=== PATIENT | female | born 1965 | race African-American/Black ===

== ENCOUNTER 2017-01-24 02:37 | Inpatient (IN) | payer BC ==
[~2017-01-24] VITALS: Ht 157.5 cm; Wt 45.8 kg
[2017-01-24] MEDS ORDERED: LORAZEPAM 2MG/ML CPJ IV STA (03:02)
[2017-01-24] MEDS ORDERED: SODIUM CHLORIDE 0.9% 1,000 ML IV ONE ×2 (03:02→05:15)
[2017-01-24 03:22] LABS: INR 1.1; PROTHROMBIN TIME 11.1 sec
[2017-01-24 03:28] LABS: ALANINE AMINOTRANSFERASE 76 IU/L (13-61); ALBUMIN 4.5 g/dL (3.4-5.0); ANION GAP 39; CALCIUM 8.7 mg/dL (8.5-10.1); CHLORIDE 94 mEq/L (98-107); ETHANOL BLOOD < 10 mg/dL; INDEX HEMOLYSI 3 (1-3); INDEX ICTERIC 1 (1-4); INDEX LIPEMIC 1 (1-3); UREA NITROGEN BLOOD 9 mg/dL (7-21); eGFR > 60 mL/min (>60)
[2017-01-24 03:29] LABS: DIFFERENTIAL COMMENT 1; HEMATOCRIT. 41.4 % (36.0-48.0); HEMOGLOBIN. 13.2 g/dL (12.0-16.0); MEAN CORPUSCULAR HGB CONC 31.9 g/dL (31.0-37.0); MEAN CORPUSCULAR VOLUME 109.6 fL (81.0-99.0); MEAN PLATELET VOLUME 10.4 fl (7.4-10.4); PLATELET 133 x1000/uL (130-400); RED BLOOD CELL COUNT 3.78 mill/uL (4.2-5.4); RED CELL DISTRIBUTION WIDTH 15.2 % (11.6-14.6); WHITE BLOOD COUNT 14.3 x1000/uL (4.5-11.0)
[2017-01-24 03:32] LABS: CLARITY URINE CLEAR (CLEAR); COLOR URINE YELLOW (YELLOW); GLUCOSE URINE NEGATIVE (NEGATIVE); KETONES URINE 4+ (NEGATIVE); LEUKOCYTE ESTERASE URINE NEGATIVE (NEGATIVE); NITRITE URINE NEGATIVE (NEGATIVE); OCCULT BLOOD URINE 1+ (NEGATIVE); PROTEIN URINE 2+ (NEGATIVE); SPECIFIC GRAVITY URINE 1.015 (1.005-1.030); UROBILINOGEN URINE 0.2 E.U./dL (0.2-1.0)
[2017-01-24 03:35] LABS: CARBON DIOXIDE 7 mEq/L (21-32)
[2017-01-24 03:41] LABS: *AMPHETAMINES SCREEN URINE NEGATIVE (NEGATIVE); *BARBITURATES SCREEN URINE NEGATIVE (NEGATIVE); *BENZODIAZEPINES SCREEN URINE NEGATIVE (NEGATIVE); *COCAINE SCREEN URINE NEGATIVE (NEGATIVE); CANNABINOID URINE SCREEN PRESUMTIVE POSITIVE (NEGATIVE); ECSTASY MDMA SCREEN URINE NEGATIVE (NEGATIVE); METHADONE URINE SCREEN NEGATIVE (NEGATIVE); OPIATES URINE SCREEN NEGATIVE (NEGATIVE); PHENCYCLIDINE URINE SCREEN NEGATIVE (NEGATIVE)
[2017-01-24 03:46] LABS: PLATELET ESTIMATE NORMAL
[2017-01-24 03:49] LABS: BACTERIA URINE NONE SEEN; RBC URINE NONE SEEN /hpf (0-2); SQUAMOUS EPITHELIAL CELL URINE FEW /lpf (RARE/1+); WBC URINE NONE SEEN /hpf (0-2)
[2017-01-24 03:57] LABS: BG BASE EXCESS -20.5 mmol/L (-2.0-2.0); BG CARBOXYHEMOGLOBIN 0.9 % (0.5-1.5); BG DEOXYHEMOGLOBIN 4.2 % (0.0-5.0); BG FRACTION INSPIRED OXYGEN 21; BG HCO3 ACT 5.2 mmol/L (22.0-26.0); BG METHEMOGLOBIN 0.4 % (0.0-1.5); BG OXYGEN SATURATION 95.7 % (92.0-98.5); BG OXYHEMOGLOBIN 94.5 % (94.0-97.0); BG PCO2 13.8 mmHg (35.0-45.0); BG PH 7.191 (7.350-7.450); BG SAMPLE SITE RIGHT RADIAL; BG TOTAL HEMOGLOBIN 13.9 g/dL (12.0-18.0); BG VENT MODE ROOM AIR
[2017-01-24] MEDS ORDERED: FOLIC ACID 1 MG, THIAMINE HCL 100 MG, MVI, ADULT NO.1 10 ML in DEXTROSE 5% WATER 1,000 ML IV ONE ×4 (04:30)
[2017-01-24 04:58] LABS: ACETAMINOPHEN < 2 ug/mL (10-30)
[2017-01-24 04:59] LABS: BETA HYDROXYBUTYRATE 6.7 mMol/L (0.0-0.3)
[2017-01-24 06:35] VITALS: BP 170/118
[2017-01-24 06:48] LABS: LACTIC ACID 7.1 mmol/L (0.4-2.0)
[2017-01-24 07:47] VITALS: BP 161/110
[2017-01-24 08:00] VITALS: BP 161/110
[2017-01-24] MEDS ORDERED: ONDANSETRON HCL 4MG/2ML VIAL IV PRN (09:15)
[2017-01-24] MEDS ORDERED: DOCUSATE SODIUM 100MG CAPSULE PO PRN (09:15)
[2017-01-24] MEDS ORDERED: ACETAMINOPHEN 325MG TABLET PO PRN (09:15)
[2017-01-24] MEDS ORDERED: CLONIDINE 0.1MG TABLET PO PRN (09:15)
[2017-01-24] MEDS ORDERED: GUAIFENESIN 200MG/10ML SUGAR FREE UDC PO PRN (09:15)
[2017-01-24] MEDS ORDERED: KETOROLAC 30MG/ML VIAL IV PRN (09:15)
[2017-01-24] MEDS ORDERED: NITROGLYCERIN 0.4MG TABLET SL SL PRN (09:15)
[2017-01-24] MEDS ORDERED: NA PHOS,M-B/NA PHOS,DI-BA ENEMA 118ML PR PRN (09:15)
[2017-01-24] MEDS ORDERED: IPRATROPIUM/ALBUTEROL 0.5-3(2.5)MG/3ML NEB INH PRN (09:30)
[2017-01-24 10:38] LABS: HEMATOCRIT. 34.1 % (36.0-48.0); HEMOGLOBIN. 11.2 g/dL (12.0-16.0); MEAN CORPUSCULAR HEMOGLOBIN 34.5 pg (28.0-32.0); MEAN CORPUSCULAR HGB CONC 32.8 g/dL (31.0-37.0); MEAN PLATELET VOLUME 9.9 fl (7.4-10.4); PLATELET 96 x1000/uL (130-400); RED BLOOD CELL COUNT 3.25 mill/uL (4.2-5.4); RED CELL DISTRIBUTION WIDTH 14.3 % (11.6-14.6)
[2017-01-24 10:40] LABS: DIFFERENTIAL COMMENT 1
[2017-01-24 11:07] LABS: ALBUMIN 3.3 g/dL (3.4-5.0); ANION GAP 23; CALCIUM 8.1 mg/dL (8.5-10.1); CARBON DIOXIDE 16 mEq/L (21-32); CHLORIDE 98 mEq/L (98-107); INDEX HEMOLYSI 1 (1-3); INDEX ICTERIC 1 (1-4); INDEX LIPEMIC 1 (1-3); MAGNESIUM 1.5 mg/dL (1.8-2.4); UREA NITROGEN BLOOD 5 mg/dL (7-21)
[2017-01-24 11:10] LABS: ALANINE AMINOTRANSFERASE 52 IU/L (13-61); eGFR > 60 mL/min (>60)
[2017-01-24 12:00] VITALS: BP 145/71
[2017-01-24] MEDS: PANTOPRAZOLE SODIUM 40 MG/VIAL IV SCH (12:15)
[2017-01-24] MEDS: ENOXAPARIN 40MG/0.4ML SYR SUBCUT SCH (12:15)
[2017-01-24] MEDS ORDERED: IOHEXOL-350 100 ML BOTTLE ONE (13:35)
[2017-01-24] MEDS ORDERED: SODIUM CHLORIDE 0.9% 10ML VIAL ONE (13:35)
[2017-01-24 13:48] LABS: PLATELET ESTIMATE DECREASED
[2017-01-24] MEDS: LEVOFLOXACIN 750MG PREMIX 150 ML IV SCH (15:29)
[2017-01-24 16:00] VITALS: BP 126/90
[2017-01-24 16:29] LABS: CREATINE KINASE MB FRACTION 1.5 ng/mL (0.5-3.6); TROPONIN I 0.04 ng/mL (0.00-0.04)
[2017-01-24] MEDS ORDERED: MAGNESIUM 2 G PREMIX 50 ML IV NR (18:00)
[2017-01-24 20:00] VITALS: BP 123/91
[2017-01-24] MEDS: SODIUM CHLORIDE 0.9% 1,000 ML IV SCH (20:32)
[2017-01-24] MEDS ORDERED: ZOLPIDEM TARTRATE 5MG TABLET PO PRN (21:00)
[2017-01-24] MEDS: KETOROLAC 15MG/ML VIAL IV PRN (21:52)
[2017-01-25] VITALS: BP 143/97
[2017-01-25] MEDS ORDERED: POTA20TA82 PO (02:07)
[2017-01-25] MEDS ORDERED: IBUP-1509 PO (02:07)
[2017-01-25 04:00] VITALS: BP 123/89
[2017-01-25] MEDS: KETOROLAC 15MG/ML VIAL IV PRN ×3 (04:34→18:17)
[2017-01-25] MEDS: SODIUM CHLORIDE 0.9% 1,000 ML IV SCH ×3 (06:25→20:32)
[2017-01-25 08:09] VITALS: BP 122/89
[2017-01-25 08:43] LABS: CREATINE KINASE MB FRACTION 1.7 ng/mL (0.5-3.6); TROPONIN I 0.13 ng/mL (0.00-0.04)
[2017-01-25] MEDS: ENOXAPARIN 40MG/0.4ML SYR SUBCUT SCH (09:00)
[2017-01-25] MEDS: FOLIC ACID 1MG TABLET PO SCH (09:08)
[2017-01-25] MEDS: THIAMINE HCL 100MG TABLET PO SCH (09:09)
[2017-01-25] MEDS: LORAZEPAM 2MG/ML CPJ IV PRN ×3 (09:09→20:31)
[2017-01-25] MEDS: PANTOPRAZOLE SODIUM 40 MG/VIAL IV SCH (09:09)
[2017-01-25] MEDS: MULTIVITAMINS,THER W-MINERALS TABLET PO SCH (09:09)
[2017-01-25 10:29] LABS: BASOPHILS % 0.3 % (0.0-2.0); DIFFERENTIAL COMMENT 0; HEMATOCRIT. 36.1 % (36.0-48.0); HEMOGLOBIN. 12.1 g/dL (12.0-16.0); LYMPHOCYTES % 11.8 % (20.0-50.0); MEAN CORPUSCULAR HEMOGLOBIN 34.8 pg (28.0-32.0); MEAN CORPUSCULAR HGB CONC 33.5 g/dL (31.0-37.0); MEAN CORPUSCULAR VOLUME 103.8 fL (81.0-99.0); MEAN PLATELET VOLUME 10.9 fl (7.4-10.4); MONOCYTES % 6.2 % (2.0-8.0); NEUTROPHILS % 81.7 % (40.0-76.0); PLATELET 85 x1000/uL (130-400); RED BLOOD CELL COUNT 3.47 mill/uL (4.2-5.4); RED CELL DISTRIBUTION WIDTH 14.7 % (11.6-14.6); WHITE BLOOD COUNT 9.2 x1000/uL (4.5-11.0)
[2017-01-25 10:40] LABS: ALANINE AMINOTRANSFERASE 46 IU/L (13-61); ALBUMIN 3.2 g/dL (3.4-5.0); ANION GAP 25; CALCIUM 8.6 mg/dL (8.5-10.1); CARBON DIOXIDE 12 mEq/L (21-32); CHLORIDE 102 mEq/L (98-107); INDEX HEMOLYSI 2 (1-3); INDEX ICTERIC 1 (1-4); INDEX LIPEMIC 1 (1-3); UREA NITROGEN BLOOD 6 mg/dL (7-21); eGFR > 60 mL/min (>60)
[2017-01-25] MEDS: LEVOFLOXACIN 750MG PREMIX 150 ML IV SCH (11:18)
[2017-01-25 12:00] VITALS: BP 143/97
[2017-01-25 16:00] VITALS: BP 116/83
[2017-01-25] MEDS ORDERED: POTASSIUM CHLORIDE 20MEQ TABLET SR PO NR (19:30)
[2017-01-25 20:00] VITALS: BP 126/91
[2017-01-26] VITALS: BP 113/84
[2017-01-26] MEDS: LORAZEPAM 2MG/ML CPJ IV PRN ×4 (00:40→20:53)
[2017-01-26 04:00] VITALS: BP 147/90
[2017-01-26 08:16] VITALS: BP 134/93
[2017-01-26] MEDS: THIAMINE HCL 100MG TABLET PO SCH (08:54)
[2017-01-26] MEDS: FAMOTIDINE 20MG TABLET PO SCH ×2 (09:55→20:53)
[2017-01-26] MEDS: MULTIVITAMINS,THER W-MINERALS TABLET PO SCH (09:55)
[2017-01-26] MEDS: FOLIC ACID 1MG TABLET PO SCH (09:55)
[2017-01-26] MEDS: LEVOFLOXACIN 750MG PREMIX 150 ML IV SCH (10:54)
[2017-01-26] MEDS: KETOROLAC 15MG/ML VIAL IV PRN ×2 (11:02→18:06)
[2017-01-26 11:32] LABS: BASOPHILS % 0.7 % (0.0-2.0); DIFFERENTIAL COMMENT 0; EOSINOPHILS % 0.1 % (0.0-5.0); MEAN CORPUSCULAR HEMOGLOBIN 34.4 pg (28.0-32.0); MEAN CORPUSCULAR HGB CONC 34.2 g/dL (31.0-37.0); MEAN CORPUSCULAR VOLUME 100.4 fL (81.0-99.0); MEAN PLATELET VOLUME 9.1 fl (7.4-10.4); MONOCYTES % 6.6 % (2.0-8.0); NEUTROPHILS % 77.6 % (40.0-76.0); PLATELET 78 x1000/uL (130-400); RED BLOOD CELL COUNT 3.49 mill/uL (4.2-5.4); RED CELL DISTRIBUTION WIDTH 14.2 % (11.6-14.6); WHITE BLOOD COUNT 7.7 x1000/uL (4.5-11.0)
[2017-01-26 12:02] LABS: ALANINE AMINOTRANSFERASE 71 IU/L (13-61); ALBUMIN 3.1 g/dL (3.4-5.0); ANION GAP 13; CALCIUM 8.5 mg/dL (8.5-10.1); CARBON DIOXIDE 24 mEq/L (21-32); CHLORIDE 104 mEq/L (98-107); INDEX HEMOLYSI 1 (1-3); INDEX ICTERIC 1 (1-4); INDEX LIPEMIC 1 (1-3); MAGNESIUM 1.7 mg/dL (1.8-2.4); UREA NITROGEN BLOOD 5 mg/dL (7-21); eGFR > 60 mL/min (>60)
[2017-01-26 12:10] VITALS: BP 111/85
[2017-01-26] MEDS ORDERED: POTASSIUM CHLORIDE 20MEQ TABLET SR PO NR (13:15)
[2017-01-26] MEDS ORDERED: MAGNESIUM 1 G PREMIX 100 ML IV NR (14:00)
[2017-01-26] MEDS ORDERED: POTASSIUM CHLORIDE INJ 40 MEQ in DEXT 5% WATER 250 ML IV NR (15:00)
[2017-01-26 16:11] VITALS: BP 114/86
[2017-01-26] MEDS: SODIUM CHLORIDE 0.9% 1,000 ML IV SCH ×2 (18:00→20:53)
[2017-01-26 20:00] VITALS: BP 134/101
[2017-01-27] VITALS: BP 127/90
[2017-01-27] MEDS: LORAZEPAM 2MG/ML CPJ IV PRN (00:36)
[2017-01-27 04:00] VITALS: BP 122/87
[2017-01-27] MEDS: SODIUM CHLORIDE 0.9% 1,000 ML IV SCH (04:00)
[2017-01-27 08:00] VITALS: BP 146/106
[2017-01-27] MEDS: THIAMINE HCL 100MG TABLET PO SCH (08:13)
[2017-01-27] MEDS: FOLIC ACID 1MG TABLET PO SCH (08:13)
[2017-01-27] MEDS: FAMOTIDINE 20MG TABLET PO SCH (08:13)
[2017-01-27] MEDS: MULTIVITAMINS,THER W-MINERALS TABLET PO SCH (08:13)
[2017-01-27 10:15] VITALS: BP 128/87
[2017-01-27 10:25] VITALS: BP 128/87
[2017-01-27] MEDS ORDERED: LEVOFLOXACIN 250MG TABLET PO SCH (11:00)
== END 2017-01-27 10:50 | disposition home or self-care (01) | DRG 871 ==
LOC: ER 02:45 → 7WST 05:09
PROVIDERS: ADMIT Internal Medicine; ATTEND Internal Medicine
DX: A41.9 Sepsis, unspecified organism (principal); J18.9 Pneumonia, unspecified organism; E87.2 Acidosis; F12.10 Cannabis abuse, uncomplicated; F17.210 Nicotine dependence, cigarettes, uncomplicated; R73.9 Hyperglycemia, unspecified; K76.0 Fatty (change of) liver, not elsewhere classified; R74.0 Nonspecific elevation of levels of transaminase and lactic acid dehydrogenase [LDH]; Z90.710 Acquired absence of both cervix and uterus
CPT/HCPCS: 36415; 36600; 71010; 71275; 80053; 80302; 80305; 80329; 81001; 82010; 82375; 82550; 82553; 82805; 83036; 83605; 83735; 83930; 84443; 84484; 85025; 85379; 85610; 93005; 93970; 96361; 96365; 96375; 97162; 99285; A4216; C9113; G0482; J1650; J1885; J1956; J2060; J3411; J3475; J3480; J3490; J7030; J7060; J7070; Q9967

== ENCOUNTER 2018-07-13 03:36 | Emergency (ER) | payer SELFPAY ==
[~2018-07-13] VITALS: Ht 157.5 cm; Wt 35.0 kg
[~2018-07-13 03:36] MED LIST: IBUP-2028 PO; POTA20TA82 PO
[2018-07-13] MEDS ORDERED: ONDANSETRON HCL 4MG/2ML VIAL IV STA (04:13)
[2018-07-13] MEDS ORDERED: MORPHINE SULFATE 4 MG/ML CPJ (NOT FOR IM USE) IV STA (04:13)
[2018-07-13] MEDS ORDERED: ASPIRIN 81MG TABLET PO ONE (04:15)
[2018-07-13 04:28] LABS: BASOPHILS % 0.2 % (0.0-2.0); EOSINOPHILS % 0.2 % (0.0-5.0); HEMATOCRIT. 40.4 % (36.0-48.0); HEMOGLOBIN. 13.6 g/dL (12.0-16.0); LYMPHOCYTES % 25.2 % (20.0-50.0); MEAN CORPUSCULAR HEMOGLOBIN 31.6 pg (28.0-32.0); MEAN PLATELET VOLUME 8.9 fl (7.4-10.4); MONOCYTES % 6.3 % (2.0-8.0); NEUTROPHILS % 68.1 % (40.0-76.0); PLATELET 153 x1000/uL (130-400); RED CELL DISTRIBUTION WIDTH 15.8 % (11.6-14.6)
[2018-07-13 04:33] LABS: CHLORIDE 107 mEq/L (98-107)
[2018-07-13 04:35] LABS: PARTIAL THROMBOPLASTIN TIME 33.1 sec (23.4-31.0)
[2018-07-13 04:59] LABS: ETHANOL BLOOD 377 mg/dL
[2018-07-13] MEDS ORDERED: KETOROLAC 30MG/ML VIAL IV ONE (05:15)
[2018-07-13] MEDS ORDERED: MAGNESIUM/ALUMINUM HYDROXIDE/SIMETHICONE 30ML UDC PO ONE (05:15)
[2018-07-13] MEDS ORDERED: FAMOTIDINE 20MG/2ML VIAL IV ONE (05:15)
[2018-07-13] MEDS ORDERED: METHYLPREDNISOLONE SOD SUCC 125 MG/2 ML VIAL IV STA (05:19)
[2018-07-13] MEDS ORDERED: IPRATROPIUM/ALBUTEROL 0.5-3(2.5)MG/3ML NEB HHN ONE (05:30)
[2018-07-13] MEDS ORDERED: LEVOFLOXACIN 500MG PREMIX 100 ML IV ONE (05:30)
[2018-07-13 06:25] LABS: CLARITY URINE CLEAR (CLEAR); COLOR URINE YELLOW (YELLOW); KETONES URINE TRACE (NEGATIVE); LEUKOCYTE ESTERASE URINE TRACE (NEGATIVE); NITRITE URINE NEGATIVE (NEGATIVE); OCCULT BLOOD URINE NEGATIVE (NEGATIVE); PROTEIN URINE TRACE (NEGATIVE); SPECIFIC GRAVITY URINE 1.011 (1.005-1.030); UROBILINOGEN URINE 0.2 E.U./dL (0.2-1.0)
[2018-07-13 06:42] LABS: *AMPHETAMINES SCREEN URINE NEGATIVE (NEGATIVE); *BARBITURATES SCREEN URINE NEGATIVE (NEGATIVE); *BENZODIAZEPINES SCREEN URINE NEGATIVE (NEGATIVE); *COCAINE SCREEN URINE NEGATIVE (NEGATIVE); METHADONE URINE SCREEN NEGATIVE (NEGATIVE); OPIATES URINE SCREEN PRESUMTIVE POSITIVE (NEGATIVE)
[2018-07-13 06:43] LABS: CANNABINOID URINE SCREEN PRESUMTIVE POSITIVE (NEGATIVE); PHENCYCLIDINE URINE SCREEN NEGATIVE (NEGATIVE)
[2018-07-13 06:51] VITALS: BP 107/57
== END 2018-07-13 06:53 | disposition home or self-care (01) ==
LOC: ER 04:18 → CANBEDREQ 10:52
DX: T51.0X1A Toxic effect of ethanol, accidental (unintentional), initial encounter (principal); R07.89 Other chest pain; J44.9 Chronic obstructive pulmonary disease, unspecified; I25.2 Old myocardial infarction; F17.200 Nicotine dependence, unspecified, uncomplicated; Z90.710 Acquired absence of both cervix and uterus; Z79.899 Other long term (current) drug therapy; Y92.89 Other specified places as the place of occurrence of the external cause
CPT/HCPCS: 36415; 71045; 80053; 80305; 81003; 83690; 83880; 84484; 85025; 85610; 85730; 87040; 93005; 96365; 96375; 99285; 99406; G0482; J1885; J1956; J2270; J2405; J2930; J3490; J7620; Z7610

== ENCOUNTER 2018-07-24 15:28 | Emergency (ER) | payer SELFPAY ==
[~2018-07-24] VITALS: Ht 157.5 cm; Wt 50.0 kg
[2018-07-24 16:59] LABS: BASOPHILS % 0.8 % (0.0-2.0); EOSINOPHILS % 0.3 % (0.0-5.0); HEMATOCRIT. 38.4 % (36.0-48.0); HEMOGLOBIN. 12.9 g/dL (12.0-16.0); LYMPHOCYTES % 42.4 % (20.0-50.0); MEAN CORPUSCULAR HEMOGLOBIN 31.7 pg (28.0-32.0); MEAN CORPUSCULAR VOLUME 94.6 fL (81.0-99.0); MEAN PLATELET VOLUME 8.5 fl (7.4-10.4); MONOCYTES % 8.5 % (2.0-8.0); PLATELET 149 x1000/uL (130-400); RED BLOOD CELL COUNT 4.06 mill/uL (4.2-5.4); RED CELL DISTRIBUTION WIDTH 16.4 % (11.6-14.6)
[2018-07-24 17:09] LABS: CHLORIDE 106 mEq/L (98-107)
[2018-07-24 17:25] LABS: ETHANOL BLOOD 472 mg/dL
[2018-07-24 17:37] LABS: CLARITY URINE CLEAR (CLEAR); COLOR URINE YELLOW (YELLOW); KETONES URINE NEGATIVE (NEGATIVE); LEUKOCYTE ESTERASE URINE TRACE (NEGATIVE); NITRITE URINE NEGATIVE (NEGATIVE); OCCULT BLOOD URINE NEGATIVE (NEGATIVE); PH URINE 5.5 (4.5-8.0); PROTEIN URINE TRACE (NEGATIVE); SPECIFIC GRAVITY URINE 1.012 (1.005-1.030); UROBILINOGEN URINE 0.2 E.U./dL (0.2-1.0)
[2018-07-24] MEDS ORDERED: KCL 20MEQ/100ML PREMIX 100 ML IV ONE (17:45)
[2018-07-24 17:59] LABS: *AMPHETAMINES SCREEN URINE NEGATIVE (NEGATIVE); *BARBITURATES SCREEN URINE NEGATIVE (NEGATIVE); *BENZODIAZEPINES SCREEN URINE NEGATIVE (NEGATIVE); *COCAINE SCREEN URINE NEGATIVE (NEGATIVE)
[2018-07-24 18:01] LABS: CANNABINOID URINE SCREEN PRESUMTIVE POSITIVE (NEGATIVE); METHADONE URINE SCREEN NEGATIVE (NEGATIVE); OPIATES URINE SCREEN NEGATIVE (NEGATIVE); PHENCYCLIDINE URINE SCREEN NEGATIVE (NEGATIVE)
[2018-07-24] MEDS ORDERED: IBUPROFEN 400MG TABLET PO ONE (19:30)
[2018-07-24 20:10] VITALS: BP 123/65
== END 2018-07-24 20:40 | disposition home or self-care (01) ==
LOC: ER 16:13
DX: F10.129 Alcohol abuse with intoxication, unspecified (principal); Y90.8 Blood alcohol level of 240 mg/100 ml or more; R07.89 Other chest pain; F41.9 Anxiety disorder, unspecified; Z56.0 Unemployment, unspecified; R74.8 Abnormal levels of other serum enzymes; Z63.5 Disruption of family by separation and divorce; F17.210 Nicotine dependence, cigarettes, uncomplicated
CPT/HCPCS: 36415; 71045; 80053; 80305; 81003; 84484; 85025; 93005; 99285; G0482; J3480; J7030; Z7610

== ENCOUNTER 2018-09-26 01:04 | Emergency (ER) | payer SELFPAY ==
[~2018-09-26] VITALS: Ht 167.6 cm; Wt 65.0 kg
[2018-09-26] MEDS ORDERED: SODIUM CHLORIDE 0.9% 1,000 ML IV ONE (01:31)
[2018-09-26 02:27] LABS: BASOPHILS % 0.4 % (0.0-2.0); EOSINOPHILS % 0.3 % (0.0-5.0); HEMATOCRIT. 34.8 % (36.0-48.0); HEMOGLOBIN. 11.7 g/dL (12.0-16.0); LYMPHOCYTES % 29.2 % (20.0-50.0); MEAN CORPUSCULAR HEMOGLOBIN 31.8 pg (28.0-32.0); MEAN CORPUSCULAR VOLUME 94.6 fL (81.0-99.0); MEAN PLATELET VOLUME 8.7 fl (7.4-10.4); MONOCYTES % 7.3 % (2.0-8.0); NEUTROPHILS % 62.8 % (40.0-76.0); PLATELET 205 x1000/uL (130-400); RED BLOOD CELL COUNT 3.68 mill/uL (4.2-5.4); RED CELL DISTRIBUTION WIDTH 17.6 % (11.6-14.6)
[2018-09-26 02:32] LABS: CHLORIDE 113 mEq/L (98-107)
[2018-09-26 02:33] LABS: HCG SCREEN NEGATIVE
[2018-09-26] MEDS ORDERED: KCL 10MEQ/50ML PREMIX 50 ML IV NR (02:45)
[2018-09-26] MEDS ORDERED: POTASSIUM CHLORIDE 20MEQ TABLET SR PO NR (02:45)
[2018-09-26 02:46] LABS: ETHANOL BLOOD 291 mg/dL
[2018-09-26 03:22] LABS: CLARITY URINE CLEAR (CLEAR); COLOR URINE YELLOW (YELLOW); KETONES URINE NEGATIVE (NEGATIVE); LEUKOCYTE ESTERASE URINE NEGATIVE (NEGATIVE); NITRITE URINE NEGATIVE (NEGATIVE); OCCULT BLOOD URINE NEGATIVE (NEGATIVE); PH URINE 7.5 (4.5-8.0); PROTEIN URINE NEGATIVE (NEGATIVE); SPECIFIC GRAVITY URINE 1.004 (1.005-1.030); UROBILINOGEN URINE 0.2 E.U./dL (0.2-1.0)
[2018-09-26 03:52] LABS: *AMPHETAMINES SCREEN URINE NEGATIVE (NEGATIVE); *BARBITURATES SCREEN URINE NEGATIVE (NEGATIVE); *BENZODIAZEPINES SCREEN URINE NEGATIVE (NEGATIVE); *COCAINE SCREEN URINE NEGATIVE (NEGATIVE)
[2018-09-26 03:53] LABS: CANNABINOID URINE SCREEN PRESUMTIVE POSITIVE (NEGATIVE); METHADONE URINE SCREEN NEGATIVE (NEGATIVE); OPIATES URINE SCREEN NEGATIVE (NEGATIVE); PHENCYCLIDINE URINE SCREEN NEGATIVE (NEGATIVE)
[2018-09-26] MEDS ORDERED: IBUPROFEN 400MG TABLET PO ONE (04:45)
[2018-09-26 04:51] VITALS: BP 111/70
== END 2018-09-26 06:50 | disposition home or self-care (01) ==
LOC: ER 01:04
DX: F10.129 Alcohol abuse with intoxication, unspecified (principal); R07.89 Other chest pain; E87.6 Hypokalemia; D64.9 Anemia, unspecified; F12.10 Cannabis abuse, uncomplicated; E78.00 Pure hypercholesterolemia, unspecified; F41.9 Anxiety disorder, unspecified; I11.0 Hypertensive heart disease with heart failure; I50.9 Heart failure, unspecified; F17.200 Nicotine dependence, unspecified, uncomplicated; Z79.899 Other long term (current) drug therapy; Y90.8 Blood alcohol level of 240 mg/100 ml or more
CPT/HCPCS: 36415; 71045; 80053; 80305; 81003; 83690; 83880; 84484; 84703; 85025; 85610; 93005; 96361; 96365; 99285; G0482; J3480; J7030

== ENCOUNTER 2019-12-13 16:31 | Emergency (ER) | payer OTHER ==
[~2019-12-13] VITALS: Ht 160 cm; Wt 47.0 kg
[2019-12-13 18:02] VITALS: BP 120/88
== END 2019-12-13 18:02 | disposition home or self-care (01) ==
LOC: ER 16:31
DX: F10.129 Alcohol abuse with intoxication, unspecified (principal); Z79.899 Other long term (current) drug therapy; Y90.9 Presence of alcohol in blood, level not specified
CPT/HCPCS: 99283

== ENCOUNTER 2020-07-31 02:20 | Emergency (ER) | payer MEDICARE, OTHER ==
[~2020-07-31] VITALS: Ht 170.2 cm; Wt 64.0 kg
[2020-07-31 03:43] LABS: BASOPHILS % 0.8 % (0.0-2.0); EOSINOPHILS % 0.3 % (0.0-5.0); HEMATOCRIT. 33.6 % (36.0-48.0); HEMOGLOBIN. 11.4 g/dL (12.0-16.0); LYMPHOCYTES % 20.7 % (20.0-50.0); MEAN CORPUSCULAR HEMOGLOBIN 32.4 pg (28.0-32.0); MEAN CORPUSCULAR VOLUME 95.2 fL (81.0-99.0); MEAN PLATELET VOLUME 8.3 fl (7.4-10.4); MONOCYTES % 5.1 % (2.0-8.0); NEUTROPHILS % 73.1 % (40.0-76.0); PLATELET 166 x1000/uL (130-400); RED BLOOD CELL COUNT 3.53 mill/uL (4.2-5.4); RED CELL DISTRIBUTION WIDTH 17.1 % (11.6-14.6)
[2020-07-31 03:56] LABS: CHLORIDE 102 mEq/L (98-107)
[2020-07-31 04:01] LABS: ETHANOL BLOOD 299 mg/dL
[2020-07-31] MEDS ORDERED: SODIUM CHLORIDE 0.9% 1,000 ML IV ONE (13:19)
[2020-07-31] MEDS ORDERED: ONDANSETRON HCL 4MG/2ML INJ IV ONE (14:15)
[2020-07-31 20:38] LABS: *AMPHETAMINES SCREEN URINE NEGATIVE (NEGATIVE); CANNABINOID URINE SCREEN PRESUMTIVE POSITIVE (NEGATIVE); PHENCYCLIDINE URINE SCREEN NEGATIVE (NEGATIVE)
[2020-07-31 20:39] LABS: *BARBITURATES SCREEN URINE NEGATIVE (NEGATIVE); *BENZODIAZEPINES SCREEN URINE NEGATIVE (NEGATIVE); *COCAINE SCREEN URINE NEGATIVE (NEGATIVE); METHADONE URINE SCREEN NEGATIVE (NEGATIVE); OPIATES URINE SCREEN NEGATIVE (NEGATIVE)
[2020-08-01 00:45] VITALS: BP 155/50
== END 2020-08-01 01:16 | disposition home or self-care (01) ==
LOC: ER 02:20
DX: F32.3 Major depressive disorder, single episode, severe with psychotic features (principal); R45.851 Suicidal ideations; Z63.4 Disappearance and death of family member; F10.10 Alcohol abuse, uncomplicated; Y90.8 Blood alcohol level of 240 mg/100 ml or more
CPT/HCPCS: 36415; 80053; 80305; 80307; 80320; 80329; 85025; 93005; 96361; 96374; 99285; J2405; J7030; G0480

== ENCOUNTER 2020-12-05 21:50 | Emergency (ER) | payer MEDICARE, MEDICAID, OTHER ==
[~2020-12-05] VITALS: Ht 157.5 cm; Wt 50.0 kg
[2020-12-05] MEDS ORDERED: SODIUM CHLORIDE 0.9% 500 ML IV ONE (23:15)
[2020-12-05 23:38] LABS: BASOPHILS % 0.6 % (0.0-2.0); EOSINOPHILS % 0.2 % (0.0-5.0); HEMATOCRIT. 35.9 % (36.0-48.0); HEMOGLOBIN. 11.8 g/dL (12.0-16.0); MEAN CORPUSCULAR HEMOGLOBIN 29.8 pg (28.0-32.0); MEAN CORPUSCULAR VOLUME 90.4 fL (81.0-99.0); MEAN PLATELET VOLUME 8.5 fl (7.4-10.4); MONOCYTES % 6.7 % (2.0-8.0); NEUTROPHILS % 62.5 % (40.0-76.0); PLATELET 144 x1000/uL (130-400); RED BLOOD CELL COUNT 3.97 mill/uL (4.2-5.4); RED CELL DISTRIBUTION WIDTH 18.6 % (11.6-14.6)
[2020-12-05 23:41] LABS: CHLORIDE 106 mEq/L (98-107)
[2020-12-05 23:55] VITALS: BP 109/68
== END 2020-12-05 23:55 | disposition left against medical advice (07) ==
LOC: ER 21:50
DX: R07.89 Other chest pain (principal); I10 Essential (primary) hypertension; F12.90 Cannabis use, unspecified, uncomplicated; E87.6 Hypokalemia
CPT/HCPCS: 36415; 71045; 80053; 83880; 84484; 85025; 93005; 96360; 99285; J7040

== ENCOUNTER 2021-07-28 22:53 | Emergency (ER) | payer OTHER, MEDICAID ==
[~2021-07-28] VITALS: Ht 170.2 cm; Wt 59.0 kg
[2021-07-29 03:31] LABS: *AMPHETAMINES SCREEN URINE NEGATIVE (NEGATIVE); *BARBITURATES SCREEN URINE NEGATIVE (NEGATIVE); *BENZODIAZEPINES SCREEN URINE NEGATIVE (NEGATIVE); *COCAINE SCREEN URINE NEGATIVE (NEGATIVE); METHADONE URINE SCREEN NEGATIVE (NEGATIVE)
[2021-07-29 03:32] LABS: CANNABINOID URINE SCREEN PRESUMTIVE POSITIVE (NEGATIVE); OPIATES URINE SCREEN NEGATIVE (NEGATIVE); PHENCYCLIDINE URINE SCREEN NEGATIVE (NEGATIVE)
[2021-07-29 04:45] VITALS: BP 126/88
== END 2021-07-29 04:49 | disposition home or self-care (01) ==
LOC: ER 22:53
DX: F32.9 Major depressive disorder, single episode, unspecified (principal); R45.851 Suicidal ideations; G62.9 Polyneuropathy, unspecified; I10 Essential (primary) hypertension; F12.90 Cannabis use, unspecified, uncomplicated
CPT/HCPCS: 80305; 99283

== ENCOUNTER 2022-01-06 12:12 | Emergency (ER) | payer MEDICARE, OTHER ==
[~2022-01-06] VITALS: Ht 157.5 cm; Wt 45.0 kg
[~2022-01-06 12:12] MED LIST changes: +GABA-290 PO
[2022-01-06 12:16] VITALS: BP 129/45
[2022-01-06] MEDS ORDERED: IBUP-2029 MT (13:46)
== END 2022-01-06 14:13 | disposition home or self-care (01) ==
LOC: ER 12:12
DX: Z48.00 Encounter for change or removal of nonsurgical wound dressing (principal)
CPT/HCPCS: 99281

== ENCOUNTER 2022-05-16 02:34 | Emergency (ER) | payer MEDICARE, OTHER ==
[~2022-05-16] VITALS: Ht 157.5 cm; Wt 41.0 kg
[~2022-05-16 02:34] MED LIST changes: +IBUP-2029 MT; +POTA-204 PO; -POTA20TA82 PO
[2022-05-16] MEDS ORDERED: ACETAMINOPHEN 500MG TABLET PO ONE (03:00)
[2022-05-16] MEDS ORDERED: IBUPROFEN 600MG TABLET PO ONE (03:00)
[2022-05-16 03:19] VITALS: BP 142/72
== END 2022-05-16 04:00 | disposition home or self-care (01) ==
LOC: ER 02:34
DX: G89.29 Other chronic pain (principal); M25.559 Pain in unspecified hip
CPT/HCPCS: 99283

== ENCOUNTER 2022-09-07 16:36 | Emergency (ER) | payer MEDICARE, MEDICAID, OTHER ==
[~2022-09-07] VITALS: Ht 157.5 cm; Wt 40.0 kg
[2022-09-07] MEDS ORDERED: TRAMADOL 50MG TABLET PO ONE (17:00)
[2022-09-07] MEDS ORDERED: ACETAMINOPHEN 325MG TABLET PO ONE (17:00)
[2022-09-07] MEDS ORDERED: IBUP-2028 MT (20:18)
[2022-09-07 20:33] VITALS: BP 126/74
== END 2022-09-07 20:19 | disposition home or self-care (01) ==
LOC: ER 16:36
DX: S90.31XA Contusion of right foot, initial encounter (principal); W18.39XA Other fall on same level, initial encounter; Y93.89 Activity, other specified; Y92.89 Other specified places as the place of occurrence of the external cause; Y99.8 Other external cause status; F32.9 Major depressive disorder, single episode, unspecified; I10 Essential (primary) hypertension; Z98.890 Other specified postprocedural states
CPT/HCPCS: 73630; 99283